=== PATIENT | female | born 1945 | race Caucasian/White ===

== ENCOUNTER 2017-02-14 15:49 | Inpatient (IN) | payer OTHER, BC ==
[~2017-02-14] VITALS: Ht 157.5 cm; Wt 54.0 kg
--- NOTE | ~2017-02-14 | EKG ---
[address] [place] [employer] [place] [address] ELECTROCARDIOGRAM REPORT Name: GALEN NUNEZ Room #: 429-P ADM IN M.R.#: [id number] Admission: 02/14/17 Attend Phys: Veronica Garcia MD Discharge: Date of : 49 Report #: [id number] THIS REPORT FOR: //name// [facility] ED Test Date: 2017-02-14 Test Time: 16:35:52 Pat Name: GALEN NUNEZ Department: Room: 429 Gender: F Flight Readiness Technician: KARLA : 1945 Requested By: Bernadine Peñaloza Order Number: [id number] MD: Vijay Renteria Measurements Intervals [place] Rate: 111 P: 68 LA: 126 QRS: 76 QRSD: 84 T: 6 QT: 334 QTc: 454 Interpretive Statements Sinus tachycardia Low voltage, precordial leads Baseline wander in lead(s) I,aVR,aVL Compared to ECG 01/21/2017 00:37:39 no significant change was found Electronically Signed On 02-16-2017 7:40:15 CDT by Vijay Renterai [email or web address] <ELECTRONICALLY SIGNED> By: Vijay Renteria MD, [facility] 02/16/17 0740 [id number] [id number] Vijay Renteria MD, [facility] /EPI
--- NOTE | ~2017-02-14 | EEG ---
[facility] [place] [address] ELECTROENCEPHALOGRAM Name: GALEN NUNEZ Room #: 429-P [facility] IN M.R.#: [id number] Admission: 02/14/17 Attend Phys: Veronica Garcia MD Discharge: 02/18/17 Date of : 49 Report #: [id number] THIS REPORT FOR: //name// CC: HARRY physician/PCP Veronica Garcia DATE OF SERVICE: 02/17/2017 This patient is being evaluated for altered mental status and anxiety. EEG was done by placing the electrodes by standard 10-20 system of electrode placement. Both referential and sequential montages were used for recording. Background activity in this patient's EEG is about 11 Hz and 40 microvolts. This is a well formed background activity. This patient repeatedly go to sleep, that is associated with bilaterally symmetrical sleep spindles and vertex sharp waves. Photic stimulation was unremarkable. Throughout the record, no active epileptiform activity was noticed. IMPRESSION: This patient's EEG does not demonstrate any clear-cut electrophysiological abnormality and was unremarkable. Thank you very much for this referral. <ELECTRONICALLY SIGNED> By: Tito House MD 02/19/17 0731 [id number] Tito House MD /nt
[~2017-02-14 15:49] MED LIST: MULTIVITAMINS1 EAC7
[2017-02-14 16:00] VITALS: BP 176/82
[2017-02-14] MEDS ORDERED: OLANZAPINE5 MG PO (16:04)
[2017-02-14] MEDS ORDERED: PROPRANOLOL 1010 MG PO (16:05)
[2017-02-14] MEDS ORDERED: FLUOXETINE HCL20 M1 PO (16:05)
[2017-02-14 16:40] LABS: ABSOLUTE NEUTROPHILS 6.8 thou/uL (1.4-8.2); BASOPHILS 0.3 % (0.0-2.0); HEMATOCRIT 38.1 % (37.0-47.0); HEMOGLOBIN 13.3 gm/dL (12.0-15.0); LYMPHOCYTES 13.3 % (24.0-44.0); MCH 31.2 pg (26.0-34.0); MCHC 34.8 g/dL (28.0-37.0); MCV 89.8 fL (80.0-100.0); MONOCYTES 8.6 % (1.0-8.0); PLATELET COUNT 312 thou/uL (150-400); POLYS 76.8 % (36.0-66.0); RBC 4.24 mil/uL (4.20-5.00); RDW 13.2 % (10.5-14.5); WBC 8.9 thou/uL (4.0-11.0)
[2017-02-14 16:42] LABS: MANUAL DIFF NO
[2017-02-14 16:48] LABS: CALCIUM 8.6 mg/dL (8.5-10.1); CREATININE 0.6 mg/dL (0.6-1.0); POTASSIUM 3.4 mmol/L (3.5-5.1)
[2017-02-14 16:55] LABS: URINE BILIRUBIN NEGATIVE (Negative); URINE BLOOD TRACE (Negative); URINE COLOR YELLOW; URINE GLUCOSE-RANDOM* NEGATIVE (Negative); URINE KETONES 3+ (Negative); URINE NITRITE NEGATIVE (Negative); URINE PROTEIN (DIPSTICK) NEGATIVE (Negative); URINE UROBILINOGEN 0.2 E.U./dl (0.2-1.0)
[2017-02-14 16:55] LABS: ALBUMIN 3.1 g/dL (3.4-5.0); TOTAL BILIRUBIN 0.6 mg/dL (<0.1-1.0); TOTAL PROTEIN 6.9 g/dL (6.4-8.2)
[2017-02-14 17:05] LABS: AMP/METHAMP Negative (Negative); BARBITURATES Negative (Negative); BENZODIAZEPINES Negative (Negative); COCAINE Negative (Negative); METHADONE Negative (Negative); OPIATES Negative (Negative); PCP Negative (Negative); THC Negative (Negative)
[2017-02-14 23:00] VITALS: BP 125/78
[2017-02-15 04:10] VITALS: BP 130/82
[2017-02-15 07:46] VITALS: BP 130/74
[2017-02-15 16:17] VITALS: BP 123/75
[2017-02-15 20:00] VITALS: BP 115/72
[2017-02-16 04:00] VITALS: BP 141/89
[2017-02-16] MEDS ORDERED: ALPRAZOLAM 0.0.25 M1 PO (07:15)
[2017-02-16 10:29] VITALS: BP 141/89
[2017-02-16 11:36] VITALS: BP 141/89
[2017-02-16 21:30] VITALS: BP 142/90
[2017-02-17 07:35] VITALS: BP 132/79
[2017-02-17 09:36] LABS: CHOLESTEROL 179 mg/dL (<200); HDL CHOLESTEROL 35 mg/dL (>40); LDL CHOLESTEROL 124 mg/dL (<100); TC:HDL 5.1 Ratio (Not establshd); TRIGLYCERIDE 103 mg/dL (<150); VLDL 21 mg/dL (<40)
[2017-02-17 16:00] VITALS: BP 100/63
[2017-02-17 17:07] VITALS: BP 11/73
[2017-02-17 18:11] LABS: GLYCOHEMOGLOBIN (HGB A1C) 5.7 % (4.8-5.6)
[2017-02-17 19:43] VITALS: BP 113/71
[2017-02-18 07:25] VITALS: BP 120/78
== END 2017-02-18 12:10 | DRG 885 ==
LOC: ER 15:49 → 4E 21:16 → EROBS 21:16 → 4E 22:00
PROVIDERS: Nurse Practitioner Family; Psychiatry & Neurology Neurology
DX: F32.3 Major depressive disorder, single episode, severe with psychotic features (principal); F03.90 Unspecified dementia, unspecified severity, without behavioral disturbance, psychotic disturbance, mood disturbance, and anxiety; F41.9 Anxiety disorder, unspecified; E86.0 Dehydration; I10 Essential (primary) hypertension; G25.0 Essential tremor; Z79.899 Other long term (current) drug therapy
CPT/HCPCS: 10084